=== PATIENT | female | born 1970 | race African-American/Black ===

== ENCOUNTER → 2020-07-21 | Outpatient (CLI) | payer SELFPAY | LOC: M LABSMTC 13:52 | PROVIDERS: ATTEND Pediatrics | DX: Z11.52 Encounter for screening for COVID-19 (principal) ==

== ENCOUNTER 2020-10-20 06:33 | Emergency (ER) | payer OTHER, SELFPAY ==
[~2020-10-20] VITALS: Ht 162.6 cm; Wt 79.2 kg
[2020-10-20] MEDS ORDERED: FAMO1TAB25 PO (06:46)
[2020-10-20 07:02] LABS: BASO % 0.4 % (0.0-1.0); EOS # 0.1 10^3/uL (0.0-0.5); EOS % 1.4 % (0.0-3.0); HEMATOCRIT 42.9 % (36.0-47.0); HEMOGLOBIN 14.1 g/dl (12.0-15.5); LYMPH # 2.4 10^3/uL (1.5-5.0); LYMPH % 30.3 % (24.0-44.0); MEAN CORPUSCULAR HEMOGLOBIN 28.6 pg (27.0-33.0); MEAN CORPUSCULAR HGB CONC 32.9 g/dl (32.0-36.5); MONO # 0.5 10^3/uL (0.0-0.8); MONO % 6.6 % (2.0-8.0); NEUTROPHILS # 4.9 10^3/uL (1.5-8.5); NEUTROPHILS % 61.1 % (36.0-66.0); PLATELET COUNT, AUTOMATED 266 10^3/uL (150-450); RED BLOOD COUNT 4.93 10^6/uL (4.00-5.40)
[2020-10-20] MEDS ORDERED: KETOROLAC 30 MG/ML 1ML VIAL IV ONE (07:15)
[2020-10-20 07:31] LABS: BLOOD UREA NITROGEN 7 MG/DL (7-18); CALCIUM LEVEL 9.2 MG/DL (8.5-10.1); CARBON DIOXIDE LEVEL 27 MEQ/L (21-32); CHLORIDE LEVEL 108 MEQ/L (98-107); CK-MB VALUE MASS < 1.0 NG/ML (<3.6); CPK CREATINE PHOSPHOKINASE 161 U/L (26-192); GLOMERULAR FILTRATION RATE > 60.0 (>51); GLUCOSE, FASTING 97 MG/DL (70-100); MB/CK RELATIVE INDEX 0.62 (< OR =4); POTASSIUM SERUM 3.9 MEQ/L (3.5-5.1); SODIUM LEVEL 140 MEQ/L (136-145); TROPONIN I < 0.02 NG/ML (< 0.10)
--- NOTE | 2020-10-20 07:32 | ECGEPIP ---
[facility] - ED Test Date: 2020-10-20 Pat Name: HAYDE STARK Department: Room: - Gender: Female [employer] Sales [employer]: : [id number] Requested By: BAHMAN Presley Order Number: [id number] Reading MD: Damian Cisse Measurements Intervals [place] Rate: 66 P: 54 IN: 166 QRS: 10 QRSD: 78 T: 29 QT: 390 QTc: 408 Interpretive Statements Normal sinus rhythm Comparison tracing not on file Electronically Signed on 10-20-2020 7:32:05 EDT by Damian Cisse
--- NOTE | 2020-10-20 08:00 | REPVR ---
PROCEDURE INFORMATION: Exam: XR Chest Exam date and time: 10/20/2020 6:51 AM Age: 50 years old Clinical indication: Other: Cp; Additional info: Chest pain TECHNIQUE: Imaging protocol: XR of the chest. Views: 1 view. COMPARISON: No relevant prior studies available. FINDINGS: Lungs: Unremarkable. No consolidation. Pleural spaces: Unremarkable. No pleural effusion. No pneumothorax. Heart/Mediastinum: Unremarkable. No cardiomegaly. Bones/joints: Unremarkable. IMPRESSION: No acute abnormalities are identified. Electronically signed by: Adrien Barth On 10/20/2020 07:59:45 AM
[2020-10-20 08:42] VITALS: BP 139/88
== END 2020-10-20 08:48 | disposition home or self-care (01) ==
LOC: M ED 06:33
DX: M94.0 Chondrocostal junction syndrome [Tietze] (principal); R06.02 Shortness of breath; K21.9 Gastro-esophageal reflux disease without esophagitis; F17.200 Nicotine dependence, unspecified, uncomplicated; Z79.899 Other long term (current) drug therapy; Z88.5 Allergy status to narcotic agent
CPT/HCPCS: 71045; 80048; 82550; 82553; 84484; 85025; 85379; 93005; 93041; 94760; 96374; 99285; J1885

== ENCOUNTER 2022-07-04 16:36 | Emergency (ER) | payer OTHER ==
[~2022-07-04] VITALS: Ht 162.6 cm; Wt 75.0 kg
[~2022-07-04 16:36] MED LIST: FAMO10TA50 PO
[2022-07-04] MEDS ORDERED: CAPS0.022 (16:56)
[2022-07-04] MEDS ORDERED: DICL1GEL3 (16:56)
[2022-07-04] MEDS ORDERED: GABA-1171 (16:56)
[2022-07-04] MEDS ORDERED: LIDO1CRE2 (16:56)
[2022-07-04] MEDS ORDERED: FAMO1TAB11 (16:56)
[2022-07-04] MEDS ORDERED: AMLO1TAB25 (16:56)
[2022-07-04] MEDS ORDERED: LOVA1CAP17 PO (16:56)
[2022-07-04] MEDS ORDERED: HYDR-3490 (16:56)
[2022-07-04] MEDS ORDERED: VARE1TAB7 PO (16:56)
[2022-07-04] MEDS ORDERED: HYDR-3363 (16:56)
[2022-07-04 20:55] VITALS: BP 126/78
== END 2022-07-04 21:06 | disposition home or self-care (01) ==
LOC: M ED 16:36
DX: M25.462 Effusion, left knee (principal); I10 Essential (primary) hypertension; K21.9 Gastro-esophageal reflux disease without esophagitis; Z79.899 Other long term (current) drug therapy; Z88.5 Allergy status to narcotic agent

== ENCOUNTER 2023-07-23 10:30 | Day surgery (SDC) | payer OTHER ==
[~2023-07-23] VITALS: Ht 162.6 cm; Wt 90.3 kg
[~2023-07-23 10:30] MED LIST changes: +AMLO1TAB25; +B-122500 PO; +CAPS0.022; +CELE100C PO; +D 50CAP2 PO; +DICL100G10; +ESTR1TAB PO; +FAMO1TAB11; +GABA-1171; +GABA-282 PO; +HYDR-3363 PO; +HYDR-3490; +LIDO1CRE2; +LOVA1CAP17 PO; +MAGN250C PO; +MULT-90 PO; +OMEP-173 PO; +RA M200C4 PO; +VARE1TAB7 PO; +ZINC220T3 PO
[2023-07-23] MEDS: NS 1,000 ML IV ONE (11:52)
[2023-07-23 13:07] VITALS: TEMP 97.4
[2023-07-23 13:26] VITALS: BP 118/73; O2SAT 96
== END 2023-07-23 13:42 | disposition home or self-care (01) ==
LOC: M OPP 10:30
PROVIDERS: ATTEND Internal Medicine Gastroenterology
DX: K29.50 Unspecified chronic gastritis without bleeding (principal); K44.9 Diaphragmatic hernia without obstruction or gangrene; K21.9 Gastro-esophageal reflux disease without esophagitis; Z86.19 Personal history of other infectious and parasitic diseases; Z79.899 Other long term (current) drug therapy; E04.2 Nontoxic multinodular goiter; G62.9 Polyneuropathy, unspecified; Z90.710 Acquired absence of both cervix and uterus; Z88.5 Allergy status to narcotic agent